=== PATIENT | female | born 1965 | race Caucasian/White ===

== ENCOUNTER 2016-10-01 11:47 | Emergency (ER) | payer BC ==
[2016-10-01] MEDS ORDERED: Naproxen 500 MG TAB ONE (13:47)
--- NOTE | 2016-10-01 15:10 | RAD ---
THREE VIEWS LEFT SHOULDER: Indication: Fall. Comparison: None. FINDINGS: No acute fracture or subluxation is evident. Visualized left lung is clear. IMPRESSION: No acute osseous abnormality. POS: HAKAN
--- NOTE | 2016-10-01 15:21 | RAD ---
FOUR VIEWS LEFT ELBOW: Indication: Fall with left elbow pain. Comparison: None. IMPRESSION: No acute fracture or dislocation is evident. No capsular distention is noted. Radial-capitellar al ignment is within normal limits. POS: LIZETH
--- NOTE | 2016-10-01 15:41 | PICIS ---
[facility] EMERGENCY RECORD TRIAGE (13:06 SFRE) TRIAGE NOTES: FALL LEFT HAND SWELLING. (13:06 SFRE) PATIENT: NAME: Kaitlin Saenz, AGE: 51, GENDER: female, : Sun1965, TIME OF GREET: Sun Oct 01, 2016 11:47, PREFERRED LANGUAGE: Prydeinig, ETHNICITY: Not or , ECODE BILLING MAP: [facility], SSN: [id number], Zip Code: [address], KG WEIGHT: 61.23, PHONE: , , , PERSON ID: [id number]. (13:06 SFRE) COMPLAINT: LT HAND SWOLLEN. (13:06 SFRE) ADMISSION: URGENCY: 3 Urgent, ADMISSION SOURCE: Doctor's Office, TRANSPORT: Walk-in, BED: ED -04. (13:06 SFRE) ASSESSMENT: Symptoms began 09/30/2016. (13:17 SFRE) PAIN: Patient complains of pain described as, sharp, shooting, stabbing, on a scale 0-10 patient rates pain as 8, Location LEFT ARM, LEFT HAND, Pain is constant, Aggravating factors:, Aggravating factors include PALPATION AND MOVEMENT, No relieving factors. (13:17 SFRE) IMMUNIZATIONS: Flu vaccine up to date, Pneumococcal vaccine up to date. (13:17 SFRE) SIRS SCORING: Heart Rate 55-109 (0), Temp range 96.8-101.1 (0), respiratory rate 12-24 (0), Mental Status altered: no (0). (13:17 SFRE) TRIAGE SCREENING: Patient denies suicidal ideation, Patient denies presence of domestic violence. (13:17 SFRE) PROVIDERS: TRIAGE NURSE: Qi Pacheco RN. (13:06 SFRE) VITAL SIGNS: BP 152/68, Pulse 87, Resp 18, Temp 98.1, (Tympanic), Pain 8, (Constant), O2 Sat 94, on Room Air, Time 10/01/2016 13:05. (13:05 SFRE) KNOWN ALLERGIES Gastrografin No Known Drug Allergies CURRENT MEDICATIONS No recorded medications VITAL SIGNS (13:05 SFRE) VITAL SIGNS: BP: 152/68, Pulse: 87, Resp: 18, Temp: 98.1 (Tympanic), Pain: 8 (Constant), O2 sat: 94 on Room Air, Time: 10/01/2016 13:05. NURSING ASSESSMENT: EXTREMITY UPPER TRAUMA (13:15 SFRE) CONSTITUTIONAL: Patient arrives ambulatory, Gait steady, History obtained from patient, Patient appears, in distress due to pain, Patient cooperative, Patient alert, Oriented to person, place and time, Skin warm, Skin dry, Skin normal in color, Mucous membranes pink, Mucous membranes moist, Patient is well-groomed, Patient complains of LEFT HAND AND ARM PAIN. &a-1R&a+25V*p+0X*c7454Z*c202B*c15G*c2P*p-0X&a-25V&a+1R Name: Kaitlin Saenz : 1965 F51 MedRec: [id number] AcctNum: [id number] Prepared: Shahnaz Oct 01, 2016 20:08 by Interface Page 1 of 7 pMD [facility] EMERGENCY RECORD MECHANISM OF INJURY: Mechanism of injury fall, from standing, from height less than 3 feet, landing on hard surface, landing on left arm. PAIN: sharp pain, shooting pain, stabbing pain, to the left shoulder, to the left upper arm, to the left elbow, to the left forearm, to the left wrist, to the left hand, Onset of pain 09/30/2016, constant, on a scale 0-10 patient rates pain as 8, Pain exacerbated by, ROM/PALPATION, Nothing has been tried to alleviate the pain. LEFT UPPER EXTREMITY: Left upper extremity assessment findings include capillary refill less than 2 seconds, Skin color normal to hand, Skin temperature to hand warm, Distal sensation intact, Muscle tone normal, Inspection findings include ecchymosis, to LEFT HAND, FA, UPPER EXT, Inspection findings include swelling, to LEFT HAND. EXTREMITY UPPER TRAUMA: no bleeding. SAFETY: Side rails up, Cart/Stretcher in lowest position, Call light within reach, Hospital ID band on. NURSING PROCEDURE: DISCHARGE NOTE (15:20 SFRE) DISCHARGE: Patient discharged to home, ambulating without assistance, driving self, unaccompanied, Summary of Care printed/ provided, Patient requested and was provided an electronic copy of Discharge Instructions, Discharge instructions given to patient, Simple or moderate discharge teaching performed, by THAI CUMMINS, F/U WITH PCP. RX DIRECTED. RETURN TO ED NEEDED FOR NEW/CONCERNING OR WORSENING SYMPTOMS., Prescriptions given and instructions on side effects given, Name of prescription(s) given: T3, Above person(s) verbalized understanding of discharge instructions and follow-up care. SAFETY: Side rails up, Cart/Stretcher in lowest position, Call light within reach, Hospital ID band on. NURSING PROCEDURE: SPLINTING (15:10 SFRE) SPLINTING: Splinting indicated for fracture care, Splinting indicated for pain control, Splint applied to, the left wrist, THAI CUMMINS, velcro wrist splint applied, Immobilized in position of comfort. Splinting indicated for fracture care, Splinting indicated for pain control, Splint applied to, the left shoulder, by THAI CUMMINS, sling applied, Immobilized in position of comfort, the left wrist, THAI CUMMINS, velcro wrist splint applied, Immobilized in position of comfort. ORDER DETAILS Order Name: Miscellaneous Nurse Order(s), Status: Done, Time: 15:03 10/01/2016, User: JOSÉ ANTONIO, &a-1R&a+25V*p+0X*a9309T*c202B*c15G*c2P*p-0X&a-25V&a+1R Name: Kaitlin Saenz : 1965 F51 MedRec: [id number] AcctNum: [id number] Prepared: Shahnaz Oct 01, 2016 20:08 by Interface Page 2 of 7 D [facility] EMERGENCY RECORD - Ordered for: MD Law Lloyd, - Entered by: MD Law Lloyd - Shahnaz Oct 01, 2016 14:59, - Quantity: 1, Order Name: Miscellaneous Nurse Order(s), Status: Done, Time: 15:03 10/01/2016, User: JOSÉ ANTONIO, - Ordered for: MD Law Lloyd, - Entered by: MD Law Lloyd - Shahnaz Oct 01, 2016 14:59, - Quantity: 1, Order Name: XR Elbow Lt 4 View STANDARD, Status: Active, Time: 13:40 10/01/2016, User: ROSA, - Ordered for: MD Law Lloyd, - Entered by: MD Law Lloyd - Sun Oct 01, 2016 13:40, - Quantity: 1, Order Name: XR Forearm Lt 2 View STANDARD, Status: Active, Time: 13:40 10/01/2016, User: ROSA, - Ordered for: MD Law Lloyd, - Entered by: MD Law Lloyd - Sun Oct 01, 2016 13:40, - Quantity: 1, Order Name: XR Hand Lt 3 View STANDARD, Status: Active, Time: 13:40 10/01/2016, User: ROSA, - Ordered for: MD Law Lloyd, - Entered by: MD Law Lloyd - Sun Oct 01, 2016 13:40, - Quantity: 1, Order Name: XR Knee Lt 4 View STANDARD, Status: Canceled, Time: 15:07 10/01/2016, User: System, - Ordered for: MD Law Lloyd, - Entered by: MD Law Lloyd - Sun Oct 01, 2016 14:58, - Quantity: 1, Order Name: XR Shoulder Lt 3 View STANDARD, Status: Active, Time: 13:40 10/01/2016, User: ROSA, - Ordered for: MD Law Lloyd, - Entered by: MD Law Lloyd - Sun Oct 01, 2016 13:40, - Quantity: 1, Order Name: XR Wrist 3 Lt View STANDARD, Status: Active, Time: 13:40 10/01/2016, User: ROSA, - Ordered for: MD Law Lloyd, - Entered by: MD Law Lloyd - Sun Oct 01, 2016 13:40, - Quantity: 1. MEDICATION ADMINISTRATION SUMMARY Drug Name: Naprosyn, Dose Ordered: 500 mg, Route: Oral, Status: Given, Time: 13:48 10/01/2016, Detailed record available in Medication Service section. MEDICATION SERVICE (13:48 LLDO) Naprosyn: Order: Naprosyn (naproxen) - Dose: 500 mg : Oral Schedule: Now Ordered by: Chris Law MD &a-1R&a+25V*p+0X*o7701K*c202B*c15G*c2P*p-0X&a-25V&a+1R Name: Kaitlin Saenz : 1965 F51 MedRec: [id number] AcctNum: [id number] Prepared: Shahnaz Oct 01, 2016 20:08 by Interface Page 3 of 7 pMD [facility] EMERGENCY RECORD Entered by: MD Shahnaz Gatica Oct 01, 2016 13:42 , Acknowledged by: THAI Vu Oct 01, 2016 13:46 Documented as given by: THAI Vu Oct 01, 2016 13:48 Patient, Medication, Dose, Route and Time verified prior to administration. Amount given: 500MG, Site: Medication administered P.O., Correct patient, time, route, dose and medication confirmed prior to administration, Patient advised of actions and side-effects prior to administration, Allergies confirmed and medications reviewed prior to administration, Patient in position of comfort, Side rails up, Cart in lowest position, Family at bedside. HPI FALL (13:42 LLDO) CHIEF COMPLAINT: Patient presents for evaluation of fall, Patient presents for evaluation of tripped and fell onto hard floor. ecchymosis and swelling and pain in left shoulder, elbow, wrist and hand (the hand is the worst) as well as left knee. HISTORIAN: History provided by patient, drove herself here. LOCATION: Symptoms are generalized. QUALITY: Pain is dull in nature, described as aching. TIME COURSE: Sudden onset of symptoms, Symptoms are worsening, are constant. SEVERITY: Maximum severity of symptoms severe, Currently symptoms are moderate, WORSE WITH MOVEMENT OR PALPATION. ASSOCIATED WITH: Associated with shoulder pain, on the left, Associated with elbow pain, on the left, Associated with wrist pain, on the left, Associated with hand pain, on the left, Associated with knee pain, on the left, Associated with abrasion(s), to the knee, to the lower leg, Associated with contusion(s), No associated loss of consciousness. EXACERBATED BY: Patient's condition exacerbated by ANY MOVEMENT OR PALPATION. RELIEVED BY: Patient's condition relieved by ice, Patient's condition relieved by rest. RISK FACTORS: No risk factors for spinal injury, No risk factors for intracranial bleed. ROS CONSTITUTIONAL: Negative constitutional review of systems. (13:45 LLDO) EYES: Negative eye review of systems, Historian denies eye pain, denies eye redness, denies eye discharge. (13:48 LLDO) ENT: Negative ears, nose, throat review of systems, Historian denies epistaxis, denies rhinorrhea, denies sinus pain, denies sore throat. (13:48 LLDO) MUSCULOSKELETAL: Historian reports arthralgias, denies deformity, reports fall, reports injury, reports joint redness, reports joint stiffness, &a-1R&a+25V*p+0X*i3835H*c202B*c15G*c2P*p-0X&a-25V&a+1R Name: Kaitlin Saenz : 1965 F51 MedRec: [id number] AcctNum: [id number] Prepared: Shahnaz Oct 01, 2016 20:08 by Interface Page 4 of 7 pMD [facility] EMERGENCY RECORD reports joint swelling, reports myalgias. (13:45 LLDO) SKIN: Negative skin review of systems, Historian denies cellulitis, denies rash, denies skin changes, denies skin lesions. (13:48 LLDO) NEUROLOGIC: Negative neurologic review of systems, Historian denies confusion, denies dizziness, denies focal weakness, denies mental status changes. (13:48 LLDO) HEMO/LYMPHATIC: Normal hematologic/lymphatic system review, Historian denies abnormal blood clotting, denies gum bleeding, denies petechiae. (13:48 LLDO) ALLERGIC/IMMUNOLOGIC: Normal allergy/immunologic system review, Historian denies eczema, denies environmental allergies, denies food allergies. (13:48 LLDO) PSYCHIATRIC: Negative psychiatric review of systems, Historian denies alcohol abuse, denies anxiety, denies depression, denies drug abuse, denies hallucinations. (13:48 LLDO) NOTES: All systems reviewed, negative except as described above. (13:45 LLDO) PAST MEDICAL HISTORY MEDICAL HISTORY: Flu vaccine up to date, Pneumococcal vaccine up to date, Past medical history includes history of hypertension, which has been treated. (13:17 SFRE) FEMALE SURGICAL HISTORY: Surgical history of thyroidectomy. (13:17 SFRE) PSYCHIATRIC HISTORY: Psychiatric history includes, anxiety, depression. (13:17 SFRE) SOCIAL HISTORY: Patient denies alcohol use, Patient denies drug use, Patient is a former tobacco user, smoked cigarettes, Patient quit smoking in the past year. (13:17 SFRE) NOTES: Nursing records reviewed, Agree with nursing records, Medication list reviewed. (13:48 LLDO) PHYSICAL EXAM CONSTITUTIONAL: Vital signs reviewed, Patient afebrile, Pulse normal, Blood pressure, BP ELEVATED SLIGHTLY, Respiratory rate normal, Patient appears, uncomfortable, Patient appears in pain, in moderate pain distress, MILD-MODERATE AT REST BUT SEVERE WITH MOVEMENT, Patient alert and oriented to person, place and time. (13:46 LLDO) HEAD: Head exam normal, Head exam included findings of head atraumatic, normocephalic. (13:48 LLDO) EYES: Eye exam normal, Eye exam included findings of eyelids normal to inspection, Pupils equally round and reactive to light, Extraocular muscles intact. (13:48 LLDO) ENT: ENT exam normal, Ear exam normal, Nose exam normal. (13:48 LLDO) NECK: Neck exam normal, Neck exam included findings of normal &a-1R&a+25V*p+0X*w3350R*c202B*c15G*c2P*p-0X&a-25V&a+1R Name: Kaitlin Saenz : 1965 F51 MedRec: [id number] AcctNum: [id number] Prepared: Shahnaz Oct 01, 2016 20:08 by Interface Page 5 of 7 pMD [facility] EMERGENCY RECORD range of motion, Trachea midline, no meningeal signs, no tenderness. (13:48 LLDO) BACK: Back exam included findings of normal inspection, range of motion normal, no tenderness. (13:46 LLDO) UPPER EXTREMITY: Upper extremity exam included findings of inspection abnormal, Range of motion limited, Radial pulse normal, Ulnar pulse normal, capillary refill less than 2 seconds, distal motor intact, distal sensory intact, Brachial pulse normal, no cyanosis, no clubbing, no edema, SEE HPI. (13:46 LLDO) LOWER EXTREMITY: Left knee exam included findings of, Left lower leg exam included findings of, SEE HPI FOR PAIN AREAS. (13:46 LLDO) NEURO: Neuro exam findings include patient oriented to person, place and time, Jeni coma scale 15, Speech normal, Gait normal, Memory normal, Cranial nerves intact, Deep tendon reflexes normal, no focal motor deficits, no focal sensory deficits, no cerebellar deficits, no nystagmus. (13:46 LLDO) SKIN: Skin exam normal, Skin exam included findings of skin warm, dry, and normal in color, no rash. (13:48 LLDO) PSYCHIATRIC: Psychiatric exam normal, Psychiatric exam included findings of patient oriented to person place and time, Normal affect. (13:48 LLDO) EVENTS TRANSFER: Triage to Emergency Main ED -04. (Shahnaz Oct 01, 2016 13:06 SFRE) Removed from Emergency Main ED -04. (15:24 SFRE) PROBLEM LIST No recorded problems DIAGNOSIS (15:01 LLDO) FINAL: PRIMARY: UNS FX LOW UNS RADIUS INIT CLOS FX, ADDITIONAL: UNSPECIFIED MULTIPLE INJURIES. DISPOSITION PATIENT: Disposition Type: Discharge, Disposition: *Discharge Home. (15:01 LLDO) Patient left the department. (15:24 SFRE) INSTRUCTION (15:04 LLDO) DISCHARGE: FRACTURE DISTAL RADIUS NO REDUCTION REQUIRED, HAND CONTUSION, VELCRO WRIST SPLINT. FOLLOWUP: Follow up with Primary Care Physician in 10-14 days. SPECIAL: Follow-up with your PCP. PRESCRIPTION (15:02 LLDO) Tylenol-Codeine #3: TABLET : 300 mg-30 mg : ORAL : Quantity: 1-2 Unit: tab(s) Route: ORAL Schedule: every 4 hours prn &a-1R&a+25V*p+0X*q6345H*c202B*c15G*c2P*p-0X&a-25V&a+1R Name: Kaitlin Saenz : 1965 F51 MedRec: [id number] AcctNum: [id number] Prepared: Shahnaz Oct 01, 2016 20:08 by Interface Page 6 of 7 pMD [facility] EMERGENCY RECORD Dispense: 24 Unit: tab(s) May substitute. Refills: No Refills . NOTES: No Refills. IMAGING *DISCHARGE INSTRUCTIONS RECEIPT: Image captured from scanner. (16:41 SFRE) *SUPPLY CHARGE SHEET: Image captured from scanner. (16:42 SFRE) ADMIN (19:56 LLDO) DIGITAL SIGNATURE: MD Law Lloyd. Ewing: LLDO=MD Law Lloyd SFRE=THAI Pacheco, Qi &a-1R&a+25V*p+0X*l6043X*c202B*c15G*c2P*p-0X&a-25V&a+1R Name: Kaitlin Saenz : 1965 F51 MedRec: [id number] AcctNum: [id number] Prepared: Shahnaz Oct 01, 2016 20:08 by Interface Page 7 of 7 pMD [facility] MEDICATION RECONCILIATION You were seen in the Emergency Department on: Shahnaz Oct 01, 2016 KNOWN ALLERGIES Gastrografin No Known Drug Allergies MEDICATIONS GIVEN WHILE IN THE EMERGENCY DEPARTMENT Naprosyn (naproxen) - Dose: 500 milligram(s) : Oral Notes from the emergency department Reviewed with family Reviewed with patient PRESCRIPTIONS (1) &a-1R&a+25V*p+0X*d1617E*c202B*c15G*c2P*p-0X&a-25V&a+1R Name: Kaitlin Saenz : 1965 F51 MedRec: [id number] AcctNum: [id number] Prepared: Shahnaz Oct 01, 2016 20:08 by Interface pMD [facility]
--- NOTE | 2016-10-01 16:35 | RAD ---
TWO VIEWS LEFT FOREARM: Indication: Fall. Comparison: None. FINDINGS: There is a nondisplaced transversely oriented fracture involving the distal radius. Radiocapitellar alignment is within normal limits. IMPRESSION: Nondisplaced distal radius fracture. POS: HAKAN
--- NOTE | 2016-10-01 16:36 | RAD ---
THREE VIEWS LEFT WRIST: Indication: Fall, wrist pain. FINDINGS: There is soft tissue swelling surrounding the distal radius. There is a transversely oriented lucen cy involving the distal radial metaphysis suspicious for a nondisplaced fracture. IMPRESSION: Nondisplaced fracture of the left distal radius. POS: HAKAN
--- NOTE | 2016-10-01 16:37 | RAD ---
THREE VIEWS LEFT HAND: Indication: Fall. Comparison: 05-17-16 FINDINGS: No acute fracture or subluxation is evident. No radiopaque foreign body is noted. There is a nondi splaced fracture involving the distal radius. This is new from a comparison dated 05-17-16. IMPRESSION: Distal radius fracture. POS: [facility]
== END 2016-10-01 15:20 | disposition home or self-care (01) ==
LOC: MADERS 11:47
DX: S52.502A Unspecified fracture of the lower end of left radius, initial encounter for closed fracture (principal); S80.212A Abrasion, left knee, initial encounter; I10 Essential (primary) hypertension; F41.9 Anxiety disorder, unspecified; F32.9 Major depressive disorder, single episode, unspecified; Z87.891 Personal history of nicotine dependence; W01.10XA Fall on same level from slipping, tripping and stumbling with subsequent striking against unspecified object, initial encounter
CPT/HCPCS: 99284

== ENCOUNTER 2017-11-29 09:51 | Outpatient (CLI) | payer OTHER | END 2017-11-29 09:52 | disposition home or self-care (01) | LOC: MADEKG 09:51 | PROVIDERS: ATTEND Family Medicine | DX: R42 Dizziness and giddiness (principal) | CPT/HCPCS: 93005; 93010 ==

== ENCOUNTER 2018-03-10 12:56 | Emergency (ER) | payer BC, SELFPAY ==
[2018-03-10] MEDS ORDERED: Ketorolac Tromethamine 60 MG/2 ML VIAL ONE (13:38)
--- NOTE | 2018-03-10 14:00 | RAD ---
SINGLE VIEW OF THE CHEST AND RIGHT RIB SERIES: COMPARISON: None. HISTORY: Right chest/rib pain. FINDINGS: Two views of the right ribs and an anterior view of the chest were performed. There is a normal-size cardiomediastinal silhouette. There is no evidence of consolidation, mass, or pleural effusion. No displaced right rib fracture is seen. No underlying pleural thickening or pneumothorax is present . The patient has breast implants. IMPRESSION: No evidence of displaced right rib fracture. POS: HAKAN
== END 2018-03-10 14:50 | disposition home or self-care (01) ==
LOC: MADERS 12:56
DX: S20.211A Contusion of right front wall of thorax, initial encounter (principal); F41.9 Anxiety disorder, unspecified; F32.9 Major depressive disorder, single episode, unspecified; I10 Essential (primary) hypertension; Z87.891 Personal history of nicotine dependence; Z79.899 Other long term (current) drug therapy; W18.30XA Fall on same level, unspecified, initial encounter
CPT/HCPCS: 93005; 96372; J1885; J7620

== ENCOUNTER 2018-04-30 12:06 | Outpatient (CLI) | payer SELFPAY ==
[2018-04-30 13:35] LABS: Cardiac Risk 2.7 (Less than 4.5)
[2018-04-30 17:57] LABS: HBCM Index 0.11 S/CO (0-0.79); HBSAg Index 0.13 S/CO (0-0.99); HIV (1/2) Antibody/Antigen Non-Reactive (NonReactive); HIV 1/2 INDEX 0.08 S/CO (<1.00); Hep A IgM AB Non-Reactive (NonReactive); Hep A IgM S/CO 0.42 S/CO (0-0.79); Hep B Surf Ag Non-Reactive S/CO (NonReactive); Hep C IgG Ab Non-Reactive (NonReactive); Hep C Index 0.09 S/CO (0-0.79); Hepatitis B Core IGM Abs Non-Reactive (NonReactive)
[2018-04-30 19:05] LABS: Syphilis Antibody Nonreactive (Nonreactive); Syphilis Antibody Index 0.05 S/CO (<1.00 Non-Reactive)
[2018-05-01 21:53] LABS: Chlamydia by PCR Not Detected (NotDetected); GC by PCR Not Detected (NotDetected)
== END 2018-04-30 12:07 | disposition home or self-care (01) ==
LOC: MADLABBHPM 12:06
PROVIDERS: ATTEND Family Medicine
DX: Z01.419 Encounter for gynecological examination (general) (routine) without abnormal findings (principal); Z87.891 Personal history of nicotine dependence
CPT/HCPCS: 36415; 80061; 80074; 86694; 86695; 86696; 86780; 87389; 87480; 87491; 87510; 87591; 87624; 87660; 88142; G0123

== ENCOUNTER 2018-08-28 11:18 | Outpatient (CLI) | payer MEDICARE, MEDICAID ==
--- NOTE | 2018-08-28 13:24 | RAD ---
RIGHT SCAPULA TWO VIEWS: HISTORY: Chronic pain. COMPARISON: None. FINDINGS: No fracture. No cortical irregularity or periosteal reaction. No erosive or destructive changes. IMPRESSION: Unremarkable two views right scapula. POS: C
== END 2018-08-28 11:19 | disposition home or self-care (01) ==
LOC: MADRAD 11:18
PROVIDERS: ATTEND Family Medicine
DX: M89.8X1 Other specified disorders of bone, shoulder (principal)

== ENCOUNTER 2018-11-17 10:58 | Emergency (ER) | payer MEDICARE, MEDICAID ==
[~2018-11-17 10:58] MED LIST: Iopamidol 370 76% 125 ML VIAL FS ONE; Sodium Chloride 0.9% 100 ML BAG ONE
[2018-11-17] MEDS ORDERED: Sodium Chloride 0.9% 1,000 ML ONE (11:17)
[2018-11-17 11:46] LABS: #Basophils 0.1 thou/uL (0.0-0.2); #Eosinphils 0.1 thou/uL (0.0-0.7); #Lymphocytes 1.4 thou/uL (1.20-3.40); #Monocytes 0.4 thou/uL (0.11-0.59); #Neutrophils 15.3 thou/uL (1.40-6.50); %Basophils 0.4 % (0.0-1.0); %Eosinophils 0.8 % (0.0-10.0); %Lymphocytes 8.2 % (21.0-51.0); %Monocytes 2.2 % (0.0-10.0); %Neutrophils 88.4 % (42.0-75.0); Hemoglobin 14.1 g/dL (12.0-16.0); Mean Corpuscular HGB CONC 32.5 g/dL (32.0-36.0); Mean Corpuscular Hemoglobin 32.9 pg (27.0-31.0); Mean Corpuscular Volume 101.4 fL (78.0-98.0); Mean Platelet Volume 7.7 fL (7.4-10.4); Platelet Count 276 thou/uL (130-400); RBC Distribution Width 12.4 % (11.5-14.5); Red Blood Cell (RBC) Count 4.27 mill/uL (4.20-5.40); White Blood Cell (WBC) Count 17.3 thou/uL (4.8-10.8)
[2018-11-17 12:01] LABS: ALT (SGPT) 16 U/L (8-55); AST (SGOT) 28 U/L (5-34); Albumin 4.4 g/dL (3.5-5.0); Alkaline Phosphatase 50 U/L (40-150); Anion Gap 17 mmol/L (10-20); BUN (Urea Nitrogen) 25 mg/dL (9.8-20.1); Bilirubin, Total 0.2 mg/dL (0.2-1.2); Calc. Creatinine Clearance 0 mL/min (70-130); Calcium 9.4 mg/dL (7.8-10.44); Carbon Dioxide 23 mmol/L (22-29); Chloride 106 mmol/L (98-107); Estimated GFR-MDRD 65; Globulin 3.3 g/dL (2.4-3.5); Glucose 98 mg/dL (70-105); Potassium 4.3 mmol/L (3.5-5.1); Protein, Total 7.7 g/dL (6.0-8.3); Sodium 142 mmol/L (136-145)
--- NOTE | 2018-11-17 12:14 | RAD ---
CHEST 1 VIEW: Date: 11/17/18 HISTORY: Dyspnea. COMPARISON: 03/10/18. FINDINGS: Cardiac silhouette is unremarkable. Pulmonary vasculature upper limits of normal. Alveolar opacity th roughout the left lower lobe. Right lung is clear. Mediastinum is midline with aortic calcification. IMPRESSION: 1. Large left lower lobe infiltrate. Clinical correlation regarding other signs and symptoms of left lower lobe pneumonitis is required. Please consider PA and lateral views of the chest when patient c an undergo that exam for further evaluation. 2. Atherosclerosis. POS: LIZETHH
[2018-11-17] MEDS ORDERED: Azithromycin 250 MG TAB ONE (13:04)
[2018-11-17] MEDS ORDERED: cefTRIAXone\\ROCEPHIN 1 GM VIAL ONE (13:04)
--- NOTE | 2018-11-17 14:14 | CT ---
CT ARTERIOGRAM CHEST WITH IV CONTRAST AND 3D MIP IMAGING: Date: 11/17/18 HISTORY: Chest pain and dyspnea. FINDINGS: There is good contrast opacification of the pulmonary arteries and thoracic aorta with normal branchi ng of the great vessels at the aortic arch. Fluffy air space infiltrate is present within the posteri or segment of the left upper lobe and the superior segment of the left lower lobe. Mild ground-glass density throughout the right lung without lobar consolidation. No pleural fluid or pneumothorax. Bila teral breast prostheses. IMPRESSION: 1. No CT evidence of pulmonary embolus. 2. Left upper and lower lobe infiltrates, consistent with pneumonia. 3. COPD. POS: LIZETH
[2018-11-17] MEDS ORDERED: Ketorolac Tromethamine 30 MG/ML VIAL ONE (14:30)
== END 2018-11-17 15:21 | disposition short-term general hospital (02) ==
LOC: MADERS 10:58
DX: J18.9 Pneumonia, unspecified organism (principal); I10 Essential (primary) hypertension; F32.9 Major depressive disorder, single episode, unspecified; F41.9 Anxiety disorder, unspecified; Z87.891 Personal history of nicotine dependence; Z79.899 Other long term (current) drug therapy
CPT/HCPCS: 71045; 71275; 80053; 83605; 83880; 84443; 84484; 85025; 85379; 87040; 87804; 93005; 94640; 94760; 96361; 96374; 96375; J0696; J1885; J7050; J7620; Q9967

== ENCOUNTER 2020-01-11 12:37 | Emergency (ER) | payer MEDICARE ==
[2020-01-11] MEDS ORDERED: Amlodipine 5 MG TAB ONE (13:49)
[2020-01-11 13:59] LABS: #Basophils 0.1 thou/uL (0.0-0.2); #Eosinphils 0.1 thou/uL (0.0-0.7); #Lymphocytes 1.1 thou/uL (1.20-3.40); #Monocytes 0.4 thou/uL (0.11-0.59); #Neutrophils 4.7 thou/uL (1.40-6.50); %Eosinophils 1.3 % (0.0-10.0); %Lymphocytes 17.3 % (21.0-51.0); %Monocytes 5.5 % (0.0-10.0); %Neutrophils 74.9 % (42.0-75.0); Hemoglobin 14.2 g/dL (12.0-16.0); Mean Corpuscular HGB CONC 31.3 g/dL (32.0-36.0); Mean Corpuscular Hemoglobin 31.5 pg (27.0-31.0); Mean Corpuscular Volume 100.7 fL (78.0-98.0); Mean Platelet Volume 6.7 fL (7.4-10.4); Platelet Count 239 thou/uL (130-400); RBC Distribution Width 12.4 % (11.5-14.5); Red Blood Cell (RBC) Count 4.48 mill/uL (4.20-5.40); White Blood Cell (WBC) Count 6.3 thou/uL (4.8-10.8)
--- NOTE | 2020-01-11 13:59 | RAD ---
Chest AP view INDICATION: Chest pain COMPARISON: November 20, 2018 FINDINGS: Lungs: Emphysematous change is stable. No acute airspace opacity, pleural effusion or pneumothorax i s demonstrated. Cardiac silhouette: Heart size is upper limits of normal but stable. Pulmonary vasculature: Normal Pleural spaces: No pleural effusion or pneumothorax is demonstrated. Upper abdomen: No abnormality seen. Osseous structures: No acute osseous abnormality. Additional findings: None. IMPRESSION: No acute cardiopulmonary abnormality.
[2020-01-11 14:18] LABS: ALT (SGPT) 19 U/L (8-55); AST (SGOT) 29 U/L (5-34); Albumin 4.5 g/dL (3.5-5.0); Alkaline Phosphatase 58 U/L (40-110); Anion Gap 20 mmol/L (10-20); BUN (Urea Nitrogen) 38 mg/dL (9.8-20.1); Bilirubin, Total 0.6 mg/dL (0.2-1.2); Calc. Creatinine Clearance 0 mL/min (70-130); Calcium 10.2 mg/dL (7.8-10.44); Carbon Dioxide 27 mmol/L (22-29); Chloride 99 mmol/L (98-107); Estimated GFR-MDRD 54; Globulin 3.6 g/dL (2.4-3.5); Glucose 78 mg/dL (70-105); Potassium 4.8 mmol/L (3.5-5.1); Protein, Total 8.1 g/dL (6.0-8.3); Sodium 141 mmol/L (136-145)
[2020-01-11] MEDS ORDERED: Ketorolac Tromethamine 30 MG/ML VIAL ONE (15:09)
[2020-01-11] MEDS ORDERED: Ondansetron ODT 4 MG TAB ONE (15:09)
== END 2020-01-11 15:55 | disposition home or self-care (01) ==
LOC: MADERS 12:37
DX: G43.909 Migraine, unspecified, not intractable, without status migrainosus (principal); F41.1 Generalized anxiety disorder; I10 Essential (primary) hypertension; J44.9 Chronic obstructive pulmonary disease, unspecified; Z87.891 Personal history of nicotine dependence
CPT/HCPCS: 36415; 71045; 80053; 84443; 84484; 85025; 93005; 96372; J1885; Q0162

== ENCOUNTER 2020-06-24 17:16 | Emergency (ER) | payer MEDICARE, MEDICAID, OTHER ==
[2020-06-24] MEDS ORDERED: Azithromycin 250 MG TAB ONE (18:08)
[2020-06-24] MEDS ORDERED: Benzonatate 100 MG CAP ONE (18:08)
--- NOTE | 2020-06-24 18:19 | RAD ---
Exam: Chest one view HISTORY:Cough Comparison: 01/11/2020 FINDINGS: Cardiac silhouette:Normal Aorta: Atherosclerotic Pulmonary vessels: Normal Costophrenic angles: Clear LUNGS: Hyperinflation with chronic changes. There do appear to be bibasilar scattered interstitial op acity. Possible bibasilar infiltrates cannot be excluded. Pneumothorax: None Osseous abnormalities: None IMPRESSION: 1. Hyperinflation. 2. Bibasilar infiltrates. 3. Atherosclerosis.
[2020-06-24 19:50] LABS: #Monocytes 0.4 thou/uL (0.11-0.59); #Neutrophils 2.7 thou/uL (1.40-6.50); %Basophils 0.4 % (0.0-1.0); %Eosinophils 0.1 % (0.0-10.0); %Lymphocytes 24.1 % (21.0-51.0); %Neutrophils 66.4 % (42.0-75.0); Mean Corpuscular HGB CONC 32.7 g/dL (32.0-36.0); Mean Corpuscular Hemoglobin 32.9 pg (27.0-31.0); Mean Corpuscular Volume 100.8 fL (78.0-98.0); Mean Platelet Volume 6.7 fL (7.4-10.4); Platelet Count 227 thou/uL (130-400); RBC Distribution Width 11.8 % (11.5-14.5); Red Blood Cell (RBC) Count 4.26 mill/uL (4.20-5.40)
[2020-06-24 20:05] LABS: ALT (SGPT) 23 U/L (8-55); AST (SGOT) 32 U/L (5-34); Albumin 4.1 g/dL (3.5-5.0); Alkaline Phosphatase 72 U/L (40-110); Anion Gap 18 mmol/L (10-20); BUN (Urea Nitrogen) 25 mg/dL (9.8-20.1); Bilirubin, Total 0.5 mg/dL (0.2-1.2); CK (CPK) 32 U/L (29-168); Calc. Creatinine Clearance 0 mL/min (70-130); Calcium 9.3 mg/dL (7.8-10.44); Carbon Dioxide 25 mmol/L (22-29); Chloride 101 mmol/L (98-107); Estimated GFR-MDRD 69; Globulin 3.6 g/dL (2.4-3.5); Glucose 87 mg/dL (70-105); Potassium 4.2 mmol/L (3.5-5.1); Protein, Total 7.7 g/dL (6.0-8.3); Sodium 140 mmol/L (136-145)
[2020-06-24] MEDS ORDERED: Sodium Chloride 0.9% 100 ML ONE (21:39)
[2020-06-24] MEDS ORDERED: cefTRIAXone\\ROCEPHIN 2 GM VIAL ONE (21:39)
== END 2020-06-24 22:18 | disposition short-term general hospital (02) ==
LOC: MADERS 17:16
DX: J18.9 Pneumonia, unspecified organism (principal); J44.9 Chronic obstructive pulmonary disease, unspecified; Z20.828 Contact with and (suspected) exposure to other viral communicable diseases; I10 Essential (primary) hypertension; F41.9 Anxiety disorder, unspecified; F32.9 Major depressive disorder, single episode, unspecified; Z87.891 Personal history of nicotine dependence
CPT/HCPCS: 71045; 80053; 82550; 83880; 84484; 85025; 96365; 96372; J0696; J1040; J3490

== ENCOUNTER 2020-07-14 10:59 | Outpatient (CLI) | payer MEDICARE, MEDICAID ==
--- NOTE | 2020-07-14 12:16 | RAD ---
PA AND LATERAL VIEWS CHEST: Date: 07/14/2020 HISTORY: Pneumonia. FINDINGS: Comparison made with exam of 06/24/2020. The heart size is normal. The aorta is tortuous. The lungs are well expanded without lobar consolidat ion, pneumothoraces, or pleural effusions. There are degenerative changes in the spine. IMPRESSION: No radiographic evidence of acute cardiopulmonary process. POS: OFF
== END 2020-07-14 11:00 | disposition home or self-care (01) ==
LOC: MADRAD 10:59
PROVIDERS: ATTEND Family Medicine
DX: U07.1 COVID-19 (principal); J12.89 Other viral pneumonia
CPT/HCPCS: 71046

== ENCOUNTER 2020-12-02 13:32 | Emergency (ER) | payer MEDICARE, MEDICAID ==
[2020-12-02 13:55] LABS: #Basophils 0.1 thou/uL (0.0-0.2); #Eosinphils 0.1 thou/uL (0.0-0.7); #Lymphocytes 1.3 thou/uL (1.20-3.40); #Monocytes 0.5 thou/uL (0.11-0.59); #Neutrophils 7.6 thou/uL (1.40-6.50); %Basophils 0.8 % (0.0-1.0); %Eosinophils 0.9 % (0.0-10.0); %Lymphocytes 13.6 % (21.0-51.0); %Monocytes 4.9 % (0.0-10.0); %Neutrophils 79.8 % (42.0-75.0); Hemoglobin 14.8 g/dL (12.0-16.0); Mean Corpuscular HGB CONC 31.7 g/dL (32.0-36.0); Mean Corpuscular Hemoglobin 32.2 pg (27.0-31.0); Mean Corpuscular Volume 101.5 fL (78.0-98.0); Mean Platelet Volume 6.2 fL (7.4-10.4); Platelet Count 239 thou/uL (130-400); RBC Distribution Width 13.1 % (11.5-14.5); Red Blood Cell (RBC) Count 4.59 mill/uL (4.20-5.40); White Blood Cell (WBC) Count 9.6 thou/uL (4.8-10.8)
[2020-12-02 14:08] LABS: ALT (SGPT) 17 U/L (8-55); AST (SGOT) 23 U/L (5-34); Albumin 4.2 g/dL (3.5-5.0); Alkaline Phosphatase 65 U/L (40-110); Anion Gap 16 mmol/L (10-20); BUN (Urea Nitrogen) 41 mg/dL (9.8-20.1); Bilirubin, Total 0.5 mg/dL (0.2-1.2); Calc. Creatinine Clearance 0 mL/min (70-130); Calcium 9.9 mg/dL (7.8-10.44); Carbon Dioxide 26 mmol/L (22-29); Chloride 101 mmol/L (98-107); Globulin 3.3 g/dL (2.4-3.5); Glucose 108 mg/dL (70-105); Potassium 5.6 mmol/L (3.5-5.1); Protein, Total 7.5 g/dL (6.0-8.3); Sodium 137 mmol/L (136-145)
[2020-12-02] MEDS ORDERED: Aspirin Chewable 81 MG TAB ONE (14:17)
[2020-12-02] MEDS ORDERED: Metoprolol Tartrate 50 MG TAB ONE (14:17)
[2020-12-02 14:18] LABS: CKMB 0.8 ng/mL (0-6.6)
[2020-12-02] MEDS ORDERED: Sodium Chloride 0.9% 1,000 ML ONE (14:22)
== END 2020-12-02 15:44 | disposition home or self-care (01) ==
LOC: MADERS 13:32
DX: R07.89 Other chest pain (principal); E87.5 Hyperkalemia; E78.5 Hyperlipidemia, unspecified; J44.9 Chronic obstructive pulmonary disease, unspecified; I10 Essential (primary) hypertension; Z87.891 Personal history of nicotine dependence
CPT/HCPCS: 71045; 80053; 82550; 82553; 84484; 85025; 93005; J7050

== ENCOUNTER 2021-01-29 14:15 | Emergency (ER) | payer MEDICARE, MEDICAID | END 2021-01-29 16:00 | disposition home or self-care (01) | LOC: MADERS 14:15 | DX: J44.1 Chronic obstructive pulmonary disease with (acute) exacerbation (principal); I10 Essential (primary) hypertension; Z87.891 Personal history of nicotine dependence; Z79.899 Other long term (current) drug therapy | CPT/HCPCS: 71045; 96372; J1040 ==

== ENCOUNTER 2021-05-31 12:23 | Emergency (ER) | payer MEDICARE, MEDICAID ==
[2021-05-31] MEDS ORDERED: predniSONE 20 MG TAB ONE (13:25)
[2021-06-01 08:28] LABS: SARS-CoV-2 PCR by NAA Not Detected (NotDetected)
== END 2021-05-31 14:00 | disposition home or self-care (01) ==
LOC: MADERS 12:23
DX: J44.9 Chronic obstructive pulmonary disease, unspecified (principal); Z20.822 Contact with and (suspected) exposure to COVID-19; I10 Essential (primary) hypertension; Z87.891 Personal history of nicotine dependence; Z79.899 Other long term (current) drug therapy
CPT/HCPCS: 71045; 99285; U0003; U0005; J7512; J7620

== ENCOUNTER 2021-07-17 14:10 | Emergency (ER) | payer MEDICARE, MEDICAID ==
[2021-07-17] MEDS ORDERED: Ketorolac Tromethamine 30 MG/ML VIAL ONE (15:11)
== END 2021-07-17 15:20 | disposition home or self-care (01) ==
LOC: MADERS 14:10
DX: S20.211A Contusion of right front wall of thorax, initial encounter (principal); I10 Essential (primary) hypertension; J44.9 Chronic obstructive pulmonary disease, unspecified; Z87.891 Personal history of nicotine dependence; Z79.01 Long term (current) use of anticoagulants; Z79.899 Other long term (current) drug therapy; W06.XXXA Fall from bed, initial encounter
CPT/HCPCS: 71046; 96372; J1885

== ENCOUNTER 2021-10-24 14:07 | Outpatient (CLI) | payer MEDICARE, MEDICAID | END 2021-10-24 14:08 | disposition home or self-care (01) | LOC: MADLAB 14:07 → MADRAD 14:08 | PROVIDERS: ATTEND Family Medicine | DX: U07.1 COVID-19 (principal); R07.81 Pleurodynia | CPT/HCPCS: 71046 ==

== ENCOUNTER 2022-07-15 13:31 | Emergency (ER) | payer OTHER ==
[2022-07-15] MEDS ORDERED: Sodium Chloride 0.9% 250 ML 250 ML ONE (14:28)
[2022-07-15] MEDS ORDERED: Sodium Chloride 0.9% 100 ML ONE (14:28)
[2022-07-15] MEDS ORDERED: Cefepime 2 GM VIAL ONE (14:28)
[2022-07-15] MEDS ORDERED: Sodium Chloride 0.9% 1,000 ML ONE (14:28)
[2022-07-15 14:34] LABS: #Basophils 0.1 thou/uL (0.0-0.2); #Lymphocytes 0.3 thou/uL (1.20-3.40); #Monocytes 0.8 thou/uL (0.11-0.59); #Neutrophils 14.3 thou/uL (1.40-6.50); %Basophils 0.5 % (0.0-1.0); %Neutrophils 92.5 % (42.0-75.0); Hemoglobin 14.3 g/dL (12.0-16.0); MDiff Complete? YES; Macrocytosis SLIGHT = 6-15 cells (100X) (0-5/hpf); Mean Corpuscular HGB CONC 33.1 g/dL (32.0-36.0); Mean Corpuscular Hemoglobin 35.6 pg (27.0-31.0); Mean Corpuscular Volume 107.5 fl (78.0-98.0); Platelet Count 262 thou/uL (130-400); Platelet Morphology Comment Appears Adequate; RBC Distribution Width 13.1 % (11.5-14.5); Red Blood Cell (RBC) Count 4.01 mill/uL (4.20-5.40); White Blood Cell (WBC) Count 15.4 thou/uL (4.8-10.8)
[2022-07-15 14:36] LABS: Base Excess-Venous -1.2 mmol/L (-2.0 to 3.0); Bicarbonate (HCO3v) 23.1 mmol/L (22.0-28.0); Chloride 108 mmol/L (98-107); Hemoglobin - Calc 16.4 g/dL (12.0-16.0); Potassium 3.8 mmol/L (3.5-5.1); Sodium 140 mmol/L (138-145); T. Carbon Dioxide 24.2 mmol/L (22.0-28.0); vO2 Saturation-calc 78.8 % (60.0-85.0)
[2022-07-15 14:38] LABS: ALT (SGPT) 14 U/L (8-55); AST (SGOT) 18 U/L (5-34); Albumin 3.9 g/dL (3.5-5.0); Alkaline Phosphatase 50 U/L (40-110); Anion Gap 15 mmol/L (10-20); BUN (Urea Nitrogen) 35 mg/dL (9.8-20.1); Bilirubin, Total 0.7 mg/dL (0.2-1.2); Calc. Creatinine Clearance 0 mL/min (70-130); Calcium 8.9 mg/dL (7.8-10.44); Carbon Dioxide 21 mmol/L (22-29); Chloride 106 mmol/L (98-107); Estimated GFR 78; Globulin 2.9 g/dL (2.4-3.5); Glucose 137 mg/dL (70-105); Protein, Total 6.8 g/dL (6.0-8.3); Sodium 138 mmol/L (136-145)
== END 2022-07-15 16:52 | disposition short-term general hospital (02) ==
LOC: MADERS 13:31
DX: J18.9 Pneumonia, unspecified organism (principal); A41.9 Sepsis, unspecified organism
CPT/HCPCS: 71045; 80053; 82330; 82803; 83605; 83880; 84484; 85025; 87040; 93005; 96365; 96367; J0692; J3370; J3490; J7050

== ENCOUNTER 2022-07-29 11:47 | Emergency (ER) | payer OTHER, MEDICAID | END 2022-07-29 12:33 | disposition home or self-care (01) | LOC: MADERS 11:47 | DX: M54.6 Pain in thoracic spine (principal); I10 Essential (primary) hypertension; J44.9 Chronic obstructive pulmonary disease, unspecified; K21.9 Gastro-esophageal reflux disease without esophagitis; Z87.891 Personal history of nicotine dependence; Z79.899 Other long term (current) drug therapy ==

== ENCOUNTER 2023-01-13 11:36 | Emergency (ER) | payer OTHER, MEDICAID ==
[2023-01-13] MEDS ORDERED: Ipratropium/Albuterol 3 ML NEB ONE (12:09)
[2023-01-13] MEDS ORDERED: predniSONE 20 MG TAB ONE (12:30)
[2023-01-13 12:41] LABS: Anion Gap 18 mmol/L (10-20); BUN (Urea Nitrogen) 24 mg/dL (9.8-20.1); Band 13 % (5-11); Calc. Creatinine Clearance 0 mL/min (70-130); Calcium 9.5 mg/dL (7.8-10.44); Carbon Dioxide 23 mmol/L (22-29); Chloride 99 mmol/L (98-107); Eosinophils 2 % (0-10); Estimated GFR 89; Glucose 97 mg/dL (70-105); Hemoglobin 14.3 g/dL (12.0-16.0); Lymphocytes 4 % (21-51); MDiff Complete? YES; Mean Corpuscular HGB CONC 33.2 g/dL (32.0-36.0); Mean Corpuscular Hemoglobin 34.4 pg (27.0-31.0); Mean Corpuscular Volume 103.5 fl (78.0-98.0); Monocytes 4 % (0-10); Neutrophil 76 % (42-75); Platelet Count 237 10x3/uL (130-400); Platelet Morphology Comment Appears Adequate; Potassium 3.3 mmol/L (3.5-5.1); RBC Distribution Width 12.9 % (11.5-14.5); RBC Morphology Normal; Reactive Lymphocytes 1 % (0-10); Red Blood Cell (RBC) Count 4.16 mill/uL (4.20-5.40); Sodium 137 mmol/L (136-145); White Blood Cell (WBC) Count 11.6 10x3/uL (4.8-10.8)
[2023-01-13] MEDS ORDERED: Lidocaine 1% PF 5 ML VIAL ONE (13:59)
[2023-01-13] MEDS ORDERED: cefTRIAXone (ROCEPHIN) 500 MG VIAL ONE (13:59)
[2023-01-13] MEDS ORDERED: Azithromycin 250 MG TAB ONE (13:59)
== END 2023-01-13 14:20 | disposition home or self-care (01) ==
LOC: MADERS 11:36
DX: J18.9 Pneumonia, unspecified organism (principal); D72.829 Elevated white blood cell count, unspecified; K21.9 Gastro-esophageal reflux disease without esophagitis; I10 Essential (primary) hypertension; J45.909 Unspecified asthma, uncomplicated; Z87.891 Personal history of nicotine dependence
CPT/HCPCS: 36415; 71046; 80048; 85025; 93005; 96372; J0696; J7512; J7620

== ENCOUNTER 2023-07-10 09:48 | Emergency (ER) | payer OTHER, MEDICAID ==
[~2023-07-10 09:48] MED LIST changes: +Iopamidol 370 76% 100 ML VIAL ONE; -Iopamidol 370 76% 125 ML VIAL FS ONE; -Sodium Chloride 0.9% 100 ML BAG ONE
[2023-07-10] MEDS ORDERED: Ipratropium/Albuterol 3 ML NEB ONE (10:39)
[2023-07-10 10:57] LABS: Hematocrit 39.5 % (36.0-47.0); Hemoglobin 12.8 g/dL (12.0-16.0); Mean Corpuscular HGB CONC 32.4 g/dL (32.0-36.0); Mean Corpuscular Hemoglobin 34.5 pg (27.0-31.0); Mean Corpuscular Volume 106.2 fl (78.0-98.0); Mean Platelet Volume 7.9 fL (7.4-10.4); Platelet Count 273 10x3/uL (130-400); RBC Distribution Width 12.8 % (11.5-14.5); Red Blood Cell (RBC) Count 3.72 mill/uL (4.20-5.40); White Blood Cell (WBC) Count 7.1 10x3/uL (4.8-10.8)
[2023-07-10 11:10] LABS: Anisocytosis SLIGHT = 6-15 cells (100X) (0-5/hpf); Band 4 % (5-11); Lymphocytes 12 % (21-51); MDiff Complete? YES; Manual Diff?? YES; Monocytes 6 % (0-10); Neutrophil 78 % (42-75)
[2023-07-10 11:11] LABS: Macrocytosis SLIGHT = 6-15 cells (100X) (0-5/hpf); Platelet Adequacy Comment Appears Adequate
[2023-07-10 11:30] LABS: ALT (SGPT) 9 U/L (8-55); AST (SGOT) 20 U/L (5-34); Alkaline Phosphatase 68 U/L (40-110); Anion Gap 20 mmol/L (10-20); BUN (Urea Nitrogen) 41 mg/dL (9.8-20.1); Bilirubin, Total 0.4 mg/dL (0.2-1.2); Calc. Creatinine Clearance 0 mL/min (70-130); Calcium 9.5 mg/dL (7.8-10.44); Carbon Dioxide 22 mmol/L (22-29); Chloride 98 mmol/L (98-107); Estimated GFR 41; Globulin 3.1 g/dL (2.4-3.5); Glucose 87 mg/dL (70-105); Magnesium 1.9 mg/dL (1.6-2.6); Potassium 5.1 mmol/L (3.5-5.1); Protein, Total 7.1 g/dL (6.0-8.3); Sodium 135 mmol/L (136-145)
[2023-07-10 11:33] LABS: Troponin I Less than 0.010 ng/mL (< 0.028)
[2023-07-10 11:57] LABS: SARS-CoV-2 NAA Rapid Test Not Detected (NotDetected)
[2023-07-10] MEDS ORDERED: Acetaminophen 325 MG TAB ONE (12:04)
[2023-07-10] MEDS ORDERED: Sodium Chloride 0.9% 1,000 ML ONE (12:04)
[2023-07-10] MEDS ORDERED: methylPREDNISolone Sod Succ/PF 125 MG/2 ML VIAL ONE (12:52)
== END 2023-07-10 13:11 | disposition home or self-care (01) ==
LOC: MADERS 09:48
DX: J44.1 Chronic obstructive pulmonary disease with (acute) exacerbation (principal); K21.9 Gastro-esophageal reflux disease without esophagitis; E78.5 Hyperlipidemia, unspecified; I10 Essential (primary) hypertension; Z87.891 Personal history of nicotine dependence; Z20.822 Contact with and (suspected) exposure to COVID-19; Z79.899 Other long term (current) drug therapy
CPT/HCPCS: 71045; 71275; 80053; 83735; 83880; 84484; 85025; 85379; 93005; 96361; 96374; J2930; J7050; J7620; Q9967

== ENCOUNTER 2023-07-29 10:33 | Emergency (ER) | payer OTHER, MEDICAID ==
[2023-07-29] MEDS ORDERED: Ketorolac Tromethamine 30 MG/ML VIAL ONE (11:16)
== END 2023-07-29 12:00 | disposition home or self-care (01) ==
LOC: MADERS 10:33
DX: S76.012A Strain of muscle, fascia and tendon of left hip, initial encounter (principal); S46.912A Strain of unspecified muscle, fascia and tendon at shoulder and upper arm level, left arm, initial encounter; S83.92XA Sprain of unspecified site of left knee, initial encounter; I10 Essential (primary) hypertension; E78.5 Hyperlipidemia, unspecified; J44.9 Chronic obstructive pulmonary disease, unspecified; W18.30XA Fall on same level, unspecified, initial encounter; Y93.89 Activity, other specified; Z87.891 Personal history of nicotine dependence; Z79.899 Other long term (current) drug therapy
CPT/HCPCS: 96372; J1885

== ENCOUNTER 2023-09-19 12:40 | Emergency (ER) | payer OTHER, MEDICAID ==
[2023-09-19] MEDS ORDERED: methylPREDNISolone Sod Succ/PF 125 MG/2 ML VIAL ONE (13:09)
[2023-09-19 13:13] LABS: #Basophils 0.1 thou/uL (0.0-0.2); #Eosinphils 0.1 thou/uL (0.0-0.7); #Lymphocytes 0.8 thou/uL (1.20-3.40); #Monocytes 0.6 thou/uL (0.11-0.59); #Neutrophils 5.1 thou/uL (1.40-6.50); %Basophils 1.3 % (0.0-1.0); %Eosinophils 1.4 % (0.0-10.0); %Lymphocytes 11.7 % (21.0-51.0); %Monocytes 8.7 % (0.0-10.0); %Neutrophils 76.8 % (42.0-75.0); Hematocrit 38.3 % (36.0-47.0); Hemoglobin 12.1 g/dL (12.0-16.0); Mean Corpuscular HGB CONC 31.7 g/dL (32.0-36.0); Mean Corpuscular Volume 107.1 fl (78.0-98.0); Mean Platelet Volume 7.3 fL (7.4-10.4); Platelet Count 312 10x3/uL (130-400); RBC Distribution Width 12.9 % (11.5-14.5); Red Blood Cell (RBC) Count 3.58 mill/uL (4.20-5.40); White Blood Cell (WBC) Count 6.7 10x3/uL (4.8-10.8)
[2023-09-19 13:21] LABS: Anion Gap 20 mmol/L (10-20); BUN (Urea Nitrogen) 29 mg/dL (9.8-20.1); Calc. Creatinine Clearance 0 mL/min (70-130); Carbon Dioxide 24 mmol/L (22-29); Chloride 97 mmol/L (98-107); Estimated GFR 55; Glucose 91 mg/dL (70-105); Potassium 4.6 mmol/L (3.5-5.1); Sodium 136 mmol/L (136-145)
[2023-09-19 13:24] LABS: Troponin I Less than 0.010 ng/mL (< 0.028)
[2023-09-19 13:42] LABS: Anisocytosis SLIGHT = 6-15 cells (100X) (0-5/hpf); MDiff Complete? YES; Macrocytosis SLIGHT = 6-15 cells (100X) (0-5/hpf)
[2023-09-19] MEDS ORDERED: cefTRIAXone (ROCEPHIN) 1 GM VIAL ONE (14:55)
== END 2023-09-19 15:21 | disposition home or self-care (01) ==
LOC: MADERS 12:40
DX: J44.1 Chronic obstructive pulmonary disease with (acute) exacerbation (principal); E78.5 Hyperlipidemia, unspecified; I10 Essential (primary) hypertension; K21.9 Gastro-esophageal reflux disease without esophagitis; E78.00 Pure hypercholesterolemia, unspecified; Z87.891 Personal history of nicotine dependence; Z79.899 Other long term (current) drug therapy; Z79.51 Long term (current) use of inhaled steroids
CPT/HCPCS: 71045; 71275; 80048; 83605; 83880; 84484; 85025; 85379; 93005; 96374; 96375; J0696; J2930; Q9967